=== PATIENT | male | born 1980 | race Caucasian/White ===

== ENCOUNTER 2023-03-11 09:30 | Inpatient (IN) | payer BC, SELFPAY ==
[2023-03-11] VITALS (24 sets, daily range): BP systolic 78–112; BP diastolic 50–65; TEMP 97.2; O2SAT 97–100
[~2023-03-11] VITALS: Ht 180.3 cm; Wt 96.3 kg
[2023-03-11] MEDS ORDERED: CHARCOAL ACTIVATED LIQUID 25GM/120ML BTL PO ONE (09:35)
[2023-03-11] MEDS ORDERED: NS 1,000 ML IV ONE ×2 (09:35→10:20)
[2023-03-11 10:05] LABS: BASO % 0.4 % (0.0-1.0); EOS % 0.6 % (0.0-3.0); HEMATOCRIT 45.4 % (42.0-52.0); HEMOGLOBIN 15.5 g/dl (13.5-17.5); LYMPH # 1.4 10^3/uL (1.5-5.0); LYMPH % 20.5 % (24.0-44.0); MEAN CORPUSCULAR HEMOGLOBIN 28.2 pg (27.0-33.0); MEAN CORPUSCULAR HGB CONC 34.1 g/dl (32.0-36.5); MEAN CORPUSCULAR VOLUME 82.5 fl (80.0-96.0); MONO # 0.3 10^3/uL (0.0-0.8); MONO % 3.7 % (2.0-8.0); NEUTROPHILS # 5.1 10^3/uL (1.5-8.5); NEUTROPHILS % 74.7 % (36.0-66.0); PLATELET COUNT, AUTOMATED 301 10^3/uL (150-450); WHITE BLOOD COUNT 6.8 10^3/uL (4.0-10.0)
[2023-03-11] MEDS ORDERED: GLUCAGON INJ 1MG VIAL IV STA ×2 (10:16→14:23)
[2023-03-11] MEDS ORDERED: GLUCAGON INJ 1MG VIAL As Ordered ONE ×2 (10:21→10:25)
[2023-03-11 10:27] LABS: AMPHETAMINES LEVEL URINE NEGATIVE (NEGATIVE); BARBITURATES URINE NEGATIVE (NEGATIVE); COCAINE METABOLITE URINE NEGATIVE (NEGATIVE); METHADONE URINE NEGATIVE (NEGATIVE); OPIATES URINE NEGATIVE (NEGATIVE); PHENCYCLIDINE URINE NEGATIVE (NEGATIVE)
[2023-03-11 10:28] LABS: BENZODIAZEPINES URINE POSITIVE (NEGATIVE); CANNABINOIDS URINE POSITIVE (NEGATIVE)
[2023-03-11 10:29] LABS: ETHYL ALCOHOL (ETHANOL) 0.003 % (0.000-0.010)
[2023-03-11 10:30] LABS: CPK CREATINE PHOSPHOKINASE 86 U/L (46-171)
[2023-03-11] MEDS ORDERED: CALCIUM GLUCONATE 1,000 MG in D5W MINI-BAG PLUS 100 ML IV ONE ×2 (10:30→15:00)
[2023-03-11 10:31] LABS: ALKALINE PHOSPHATASE 82 U/L (46-116); ALT/SGPT 28 U/L (7.0-40); AST/SGOT 12 U/L (<34); BILIRUBIN,DIRECT 0.1 MG/DL (<0.4); BILIRUBIN,TOTAL 0.3 MG/DL (0.3-1.2); BLOOD UREA NITROGEN 11 MG/DL (9-23); CALCIUM LEVEL 8.9 MG/DL (8.5-10.1); CARBON DIOXIDE LEVEL 23 MMOL/L (20-31); CHLORIDE LEVEL 106 MMOL/L (98-107); CREATININE FOR GFR 0.84 MG/DL (0.70-1.30); GLOMERULAR FILTRATION RATE > 60.0 (>60); GLUCOSE, FASTING 156 MG/DL (60-100); POTASSIUM SERUM 4.1 MMOL/L (3.5-5.1); SALICYLATE LEVEL < 3.0 MG/DL (<30); SODIUM LEVEL 137 MMOL/L (136-145); TOTAL PROTEIN 7.2 G/DL (5.7-8.2)
[2023-03-11 10:33] LABS: THYROID STIMULATING HORMONE 0.706 uIU/ML (0.55-4.78)
[2023-03-11 10:50] LABS: RSV AMPLIFICATION NEGATIVE (NEGATIVE)
[2023-03-11] MEDS ORDERED: ALBUTEROL SULFATE 2.5MG/0.5ML INH NEB SOLN NEB PRN (11:20)
[2023-03-11] MEDS ORDERED: LR 1,000 ML IV SCH (11:35)
[2023-03-11] MEDS ORDERED: MED REC IN PROGRESS XX SCH (11:50)
[2023-03-11] MEDS ORDERED: LR 1,000 ML IV ONE (14:30)
[2023-03-11] MEDS ORDERED: NOREPINEPHRINE 4MG IN D5 250ML 4 MG in IV 1 EA IV SCH ×2 (15:00)
[2023-03-11] MEDS ORDERED: HumuLIN R (REGULAR) INSULIN (NovoLIN R) **100U/ML** PER UNIT IV ONE (15:50)
[2023-03-11] MEDS ORDERED: INSULIN IV RATE CHANGE DOCUMENTATION ML/HR XX SCH (15:55)
[2023-03-11] MEDS ORDERED: DEXTROSE 50% 50ML SYRINGE IV ONE (15:55)
[2023-03-11] MEDS ORDERED: DEXTROSE 50% 50ML SYRINGE IV PRN (16:40)
[2023-03-11] MEDS ORDERED: GLUCAGON INJ 1MG VIAL SC PRN (16:40)
[2023-03-11] MEDS ORDERED: GLUCOSE 4GM CHEW TABLET PO PRN (16:40)
[2023-03-11] MEDS: INSULIN REGULAR IN 0.9 % NACL 100 UNIT in IV 1 EA IV SCH ×8 (16:58→19:10)
[2023-03-11] MEDS ORDERED: [UNRECOGNIZED DRUG - OTHER] IV SCH (17:00)
[2023-03-11] MEDS ORDERED: POTASSIUM CHLORIDE IV SCH (17:00)
[2023-03-11] MEDS ORDERED: D10W IV SCH (17:00)
[2023-03-11] MEDS ORDERED: DEXTROSE 50% 50ML SYRINGE IV STA (18:02)
[2023-03-11] MEDS ORDERED: ENOXAPARIN 100MG/1ML SYRINGE (J1650 PER 10MG) SC SCH (21:00)
[2023-03-12] MEDS ORDERED: ENOXAPARIN 40MG/0.4ML SYRINGE (J1650 PER 10MG) SC SCH (09:00)
== END 2023-03-11 19:25 | disposition other institution (70) | DRG 812 ==
LOC: M ED 09:30 → EDBD 09:30 → M ED INP 11:19 → ENRESERV 11:52 → M ICU 13:32
PROVIDERS: ADMIT Internal Medicine Pulmonary Disease; ATTEND Internal Medicine Pulmonary Disease
PROC: 02HV33Z Insertion of Infusion Device into Superior Vena Cava, Percutaneous Approach (ICD-10-PCS; principal; 2023-03-11)
DX: T44.7X2A Poisoning by beta-adrenoreceptor antagonists, intentional self-harm, initial encounter (principal); R57.0 Cardiogenic shock; G92.9 Unspecified toxic encephalopathy; T14.91XA Suicide attempt, initial encounter; I10 Essential (primary) hypertension; F41.9 Anxiety disorder, unspecified; F17.210 Nicotine dependence, cigarettes, uncomplicated; F32.A Depression, unspecified; Z86.711 Personal history of pulmonary embolism; Z86.718 Personal history of other venous thrombosis and embolism; Z79.01 Long term (current) use of anticoagulants; Z85.528 Personal history of other malignant neoplasm of kidney; Z90.5 Acquired absence of kidney; Z91.51 Personal history of suicidal behavior